=== PATIENT | female | born 1940 ===

== ENCOUNTER 2017-11-20 09:37 | Emergency (ER) | payer MEDICARE, OTHER ==
[~2017-11-20] VITALS: Ht 162.6 cm; Wt 65.0 kg
[~2017-11-20 09:37] MED LIST: Enulose10 GM/15 M PO; METR70GEL
[2017-11-20] MEDS ORDERED: LOSA25 PO (10:18)
[2017-11-20 10:19] LABS: BASOPHILS ABSOLUTE AUTO 0.03 K/mm3 (0.00-0.23); BASOPHILS PERCENT AUTO 1 % (0-2); EOSINOPHILS ABSOLUTE AUTO 0.27 K/mm3 (0.00-0.68); EOSINOPHILS PERCENT AUTO 5 % (0-6); Hematocrit 40.4 % (33.0-51.0); Hemoglobin 13.5 g/dL (11.5-16.0); IMMATURE GRAN ABSOLUTE AUTO 0.02 K/mm3 (0.00-0.10); IMMATURE GRAN PERCENT AUTO 0 % (0-1); LYMPHOCYTES ABSOLUTE AUTO 1.67 K/mm3 (0.84-5.20); LYMPHOCYTES PERCENT AUTO 28 % (21-46); MONOCYTES ABSOLUTE AUTO 0.45 K/mm3 (0.16-1.47); MONOCYTES PERCENT AUTO 8 % (4-13); Mean Corpuscular HGB 31.7 pg (26.0-34.0); Mean Corpuscular HGB Conc 33.4 g/dL (31.5-36.5); Mean Corpuscular Volume 95 fL (80-100); Mean Platelet Volume 10.9 fL (9.1-12.4); NEUTROPHILS ABSOLUTE AUTO 3.58 K/mm3 (1.96-9.15); NEUTROPHILS PERCENT AUTO 60 % (41-73); Platelet Count 266 K/mm3 (150-400); RDW Coefficient Variation 13.8 % (11.7-14.2); Red Blood Cell Count 4.26 M/mm3 (3.80-5.20); White Blood Cell Count 6.02 K/mm3 (4.00-11.30)
[2017-11-20] MEDS ORDERED: WARF2 PO (10:19)
[2017-11-20] MEDS ORDERED: METO25 PO (10:19)
[2017-11-20] MEDS ORDERED: ASCO500 PO (10:20)
[2017-11-20] MEDS ORDERED: TOCO1000 PO (10:20)
[2017-11-20] MEDS ORDERED: Beta Carot25000 UNIT PO (10:20)
[2017-11-20] MEDS ORDERED: Ginkgo Biloba120 MG PO (10:21)
[2017-11-20] MEDS ORDERED: Hair, Skin & N1 EACH PO (10:21)
[2017-11-20] MEDS ORDERED: GLUCOSAMINE-CH1 EAC8 PO (10:23)
[2017-11-20] MEDS ORDERED: KRILL OIL500 MG PO (10:23)
[2017-11-20 10:32] LABS: International Normalized Ratio 2.06; Prothrombin Time Results 21.9 Sec (9.7-11.5)
[2017-11-20 10:37] LABS: Anion Gap 9 mmol/L (6-16); Blood Urea Nitrogen 13 mg/dL (8-24); Bun/Creatinine Ratio 18.2 (12.0-20.0); CO2, Blood 23 mmol/L (21-32); Calcium, Blood 8.8 mg/dL (8.5-10.1); Chloride, Blood 109 mmol/L (98-108); Creatinine, Blood 0.72 mg/dL (0.40-1.00); Glomerular Filtration Rate >60 (60-); Glucose, Blood 106 mg/dL (70-99); Potassium, Blood 4.3 mmol/L (3.5-5.5); Sodium, Blood 141 mmol/L (136-145)
== END 2017-11-20 12:30 | disposition home or self-care (01) ==
LOC: ER 09:37
PROVIDERS: Emergency Medicine
DX: I48.91 Unspecified atrial fibrillation (principal); Z88.5 Allergy status to narcotic agent; Z95.810 Presence of automatic (implantable) cardiac defibrillator; Z88.8 Allergy status to other drugs, medicaments and biological substances; Z79.01 Long term (current) use of anticoagulants
CPT/HCPCS: 36415; 80048; 85025; 85610; 92960; 93005; 93010; 96374; 96375; 99285; J2250; J3010; J7030

== ENCOUNTER 2018-03-09 10:46 | Emergency (ER) | payer MEDICARE, OTHER ==
[~2018-03-09] VITALS: Ht 162.6 cm; Wt 64.9 kg
[~2018-03-09 10:46] MED LIST changes: +ASCO500 PO; +Beta Carot25000 UNIT PO; +GLUCOSAMINE-CH1 EAC8 PO; +Ginkgo Biloba120 MG PO; +Hair, Skin & N1 EACH PO; +KRILL OIL500 MG PO; +LOSA25 PO; +METO25 PO; +TOCO1000 PO; +WARF2 PO
[2018-03-09 11:40] LABS: BASOPHILS ABSOLUTE AUTO 0.06 K/mm3 (0.00-0.23); BASOPHILS PERCENT AUTO 1 % (0-2); EOSINOPHILS ABSOLUTE AUTO 0.29 K/mm3 (0.00-0.68); EOSINOPHILS PERCENT AUTO 3 % (0-6); Hematocrit 36.8 % (33.0-51.0); Hemoglobin 12.2 g/dL (11.5-16.0); IMMATURE GRAN ABSOLUTE AUTO 0.05 K/mm3 (0.00-0.10); IMMATURE GRAN PERCENT AUTO 1 % (0-1); LYMPHOCYTES ABSOLUTE AUTO 1.99 K/mm3 (0.84-5.20); LYMPHOCYTES PERCENT AUTO 22 % (21-46); MONOCYTES ABSOLUTE AUTO 0.68 K/mm3 (0.16-1.47); MONOCYTES PERCENT AUTO 8 % (4-13); Mean Corpuscular HGB 30.5 pg (26.0-34.0); Mean Corpuscular HGB Conc 33.2 g/dL (31.5-36.5); Mean Corpuscular Volume 92 fL (80-100); NEUTROPHILS ABSOLUTE AUTO 5.93 K/mm3 (1.96-9.15); NEUTROPHILS PERCENT AUTO 66 % (41-73); Platelet Count 177 K/mm3 (150-400); RDW Coefficient Variation 13.3 % (11.7-14.2); RDW Standard Deviation 45.5 fL (35.1-46.3)
[2018-03-09 12:49] LABS: Alanine Aminotransfer (ALT/SGP 33 U/L (12-78); Albumin, Blood 3.7 g/dL (3.4-5.0); Albumin/Globulin Ratio 1.1 (0.8-1.8); Alk Phos 76 U/L (50-136); Anion Gap 8 mmol/L (6-16); Aspartate Aminotrans (AST/SGOT 17 U/L (12-37); Bilirubin, Total 0.6 mg/dL (0.1-1.0); Blood Urea Nitrogen 14 mg/dL (8-24); Bun/Creatinine Ratio 18.2 (12.0-20.0); CO2, Blood 24 mmol/L (21-32); Calcium, Blood 8.6 mg/dL (8.5-10.1); Chloride, Blood 102 mmol/L (98-108); Creatinine, Blood 0.77 mg/dL (0.40-1.00); Globulin, Blood 3.3 g/dL (2.2-4.0); Glomerular Filtration Rate >60 (60-); Glucose, Blood 102 mg/dL (70-99); Potassium, Blood 4.1 mmol/L (3.5-5.5); Sodium, Blood 134 mmol/L (136-145); Troponin I <0.015 ng/mL (0.000-0.040)
== END 2018-03-09 15:12 | disposition home or self-care (01) ==
LOC: ER 10:46
PROVIDERS: Emergency Medicine
DX: R07.89 Other chest pain (principal); M25.512 Pain in left shoulder; I48.91 Unspecified atrial fibrillation; J34.89 Other specified disorders of nose and nasal sinuses; Z88.8 Allergy status to other drugs, medicaments and biological substances; Z88.5 Allergy status to narcotic agent; Z79.899 Other long term (current) drug therapy; Z79.01 Long term (current) use of anticoagulants; Z87.891 Personal history of nicotine dependence
CPT/HCPCS: 36415; 71046; 80053; 84484; 85025; 93005; 93010; 99284

== ENCOUNTER 2019-11-22 07:48 | Day surgery (SDC) | payer MEDICARE, OTHER ==
[~2019-11-22] VITALS: Ht 162.6 cm; Wt 61.6 kg
[2019-11-22] MEDS ORDERED: ELIQUIS5 MG (08:04)
== END 2019-11-22 10:25 | disposition home or self-care (01) ==
LOC: ORSCSDS 07:48
PROVIDERS: Surgery
PROC: 0DJD8ZZ Inspection of Lower Intestinal Tract, Via Natural or Artificial Opening Endoscopic (ICD-10-PCS; principal; 2019-11-22 09:15)
DX: Z12.11 Encounter for screening for malignant neoplasm of colon (principal); Q89.3 Situs inversus; K57.30 Diverticulosis of large intestine without perforation or abscess without bleeding; I48.91 Unspecified atrial fibrillation; E03.9 Hypothyroidism, unspecified; Z87.891 Personal history of nicotine dependence; Z79.01 Long term (current) use of anticoagulants; Z79.899 Other long term (current) drug therapy
CPT/HCPCS: J2704; J7120